=== PATIENT | male | born 1935 | race Two or more races ===

== ENCOUNTER 2020-10-02 23:40 | Inpatient (IN) | payer MEDICARE, MEDICAID ==
[~2020-10-02] VITALS: Ht 157.5 cm; Wt 57.6 kg
--- NOTE | 2020-10-02 23:55 | NUR ---
PT AAOX3, WOLOF SPEAKING. BIBPARAMEDICS FROM HOME C/O FEVER OF 104 TODAY. UPON CHECKING PT HAD TEMP OF 102.9. PER FAMILY, PT HAD A FEVER OF 101 WHICH WAS GIVEN 500MG OF TYLENOL AT 1630. PT PLACED IN BED 7 ON MONITOR AND PULSE OX. IV LAC 18G PLACED, BLOOD WORK COLLECTED, SENT TO LAB.
[2020-10-02] MEDS ORDERED: ACETAMINOPHEN ES 500 MG TABLET ONE (23:56)
[2020-10-03] MEDS ORDERED: ACETAMINOPHEN ES 500 MG TABLET PO ONE
--- NOTE | 2020-10-03 00:01 | NUR ---
Deanna falcon in [facility] - 10/03/20 at 0015 by WENDY BROUGHT BACK FROM CT
[2020-10-03 00:13] LABS: BASOPHILS % (AUTO) 0.1 % (0.0-2.0); EOSINOPHILS % (AUTO) 0.1 % (0.0-6.0); HEMATOCRIT 39 % (39-51); HEMOGLOBIN 13.1 g/dL (13.5-17.5); MEAN CORPUSCULAR HGB CONC 33 g/dl (31.0-36.0); MEAN CORPUSCULAR VOLUME 91 fL (80-96); MONOCYTES # (AUTO) 0.4 /CMM (0.1-1.30); MONOCYTES % (AUTO) 2.7 % (2.0-12.0); NEUTROPHILS # (AUTO) 12.3 /CMM (1.8-8.9); NEUTROPHILS % (AUTO) 90.1 % (43.0-81.0); PLATELET COUNT (AUTO) 150 /CMM (150-450); RED BLOOD CELL COUNT(AUTO) 4.32 MIL/uL (4.5-6.0); WHITE BLOOD COUNT (AUTO) 13.6 K/uL (4.3-11.0)
--- NOTE | 2020-10-03 00:15 | NUR ---
UNABLE TO PROVIDE URINE SAMPLE
--- NOTE | 2020-10-03 00:46 | NUR ---
SPOKE TO THE DAUGHTER FOR AN UPDATE.
[2020-10-03] MEDS ORDERED: IV NS 0.9% 1,000 ML BAG IV ONE ×2 (01:00)
[2020-10-03] MEDS ORDERED: VANCOMYCIN 1 GM in IV D5W 250 ML IV ONE (01:00)
[2020-10-03] MEDS ORDERED: PIPERACILLIN /TAZOBACTAM 3.375 G in IV D5W 50 ML IV ONE (01:00)
--- NOTE | 2020-10-03 01:00 | NUR ---
COVID ANTIGEN NEGATIVE
[2020-10-03] MEDS ORDERED: VANCOMYCIN 1 GM VIAL ONE (01:07)
[2020-10-03] MEDS ORDERED: PIPERACILLIN /TAZOBACTAM 3.375 G VIAL IV ONE (01:07)
--- NOTE | 2020-10-03 01:12 | NUR ---
URINE COLLECTED, SENT TO LAB.
[2020-10-03] MEDS ORDERED: Z GUARD REMEDY 2 OZ OINT TP PRN (01:30)
[2020-10-03] MEDS ORDERED: ZOLPIDEM TARTRATE 5 MG TABLET PO PRN (01:30)
[2020-10-03] MEDS ORDERED: HYDROCODONE/APAP 5/325MG TABLET PO PRN (01:30)
[2020-10-03] MEDS ORDERED: MAG HYDROX/AL HYDROX/SIMETH 30 ML UDC PO PRN (01:30)
[2020-10-03] MEDS ORDERED: AZITHROMYCIN 500 MG in IV D5W 250 ML IV SCH ×2 (01:30→22:00)
[2020-10-03] MEDS ORDERED: IV NS 0.9% 1,000 ML IV ONE (01:30)
[2020-10-03] MEDS ORDERED: MAGNESIUM HYDROXIDE 30 ML UDC PO PRN (01:30)
[2020-10-03] MEDS ORDERED: ONDANSETRON HCL/PF 4 MG/2 ML VIAL IVP PRN (01:30)
[2020-10-03 01:39] LABS: CALCIUM, SERUM 8.6 mg/dL (8.5-10.1); CARBON DIOXIDE 21 mmol/L (21-32); CHLORIDE 104 mmol/L (98-107); CREATININE 1.4 mg/dL (0.6-1.3); GLUCOSE 194 mg/dL (74-106); POTASSIUM 3.9 mmol/L (3.5-5.1); SODIUM SERUM 138 mmol/L (136-145); UREA NITROGEN, BLOOD 28 mg/dL (7-18)
--- NOTE | 2020-10-03 01:49 | NUR ---
REPORT GIVEN TO NURIA VAUGHN FOR JENNIFER
[2020-10-03 01:52] LABS: ALANINE AMINOTRANSFERASE 20 U/L (12-78); ALBUMIN 3.1 g/dL (3.4-5.0); ALKALINE PHOSPHATASE 60 U/L (46-116); ASPARTATE AMINOTRANSFERASE 17 U/L (15-37); B-TYPE NATRIURETIC PEPTIDE 1648 PG/ML (0-125); BILIRUBIN,DIRECT 0.3 mg/dL (0.0-0.2); BILIRUBIN,TOTAL 1.1 mg/dL (0.2-1.0); TOTAL PROTEIN, SERUM 6.9 g/dL (6.4-8.2)
[2020-10-03 01:53] LABS: BILIRUBIN,URINE NEGATIVE (NEGATIVE); COLOR,URINE YELLOW (YELLOW); LEUKOCYTE ESTERASE ,URINE MODERATE (NEGATIVE); NITRITE, URINE NEGATIVE (NEGATIVE); PH,URINE 5.5 (5.0-8.0); PROTEIN,URINE 100 mg/dl (NEGATIVE); UGLUCOSE 250 MG/DL mg/dL (NEGATIVE); UROBILINOGEN,URINE 0.2 EU/dL (0.2)
[2020-10-03] MEDS ORDERED: CEFTRIAXONE 1 G in IV D5W 50 ML IV SCH ×2 (02:00→23:00)
--- NOTE | 2020-10-03 02:00 | NUR ---
RN OPENING NOTE ADMIT 84 YEAR OLD DOMINICAN MALE TO DIOGENES UNIT AT ROOM 117 FROM ER WITH DIAGNOSIS: SEPSIS,ALERT ORIENTED X3 VERBALLY RESPONSIVE DOMINICAN SPEAKER ONLY,ON 4L OXYGEN VIA NASAL CANNULA, O2:96% IV SITE IS ON LEFT AC INTACT PATENT,CONTINENT TO BOWEL/BLADDER,IMPLEMENT SAFETY MEASURE,CALL LIGHT WITHIN REACH,BED IN LOW POSITION AND LOCKED,BED ALARM IS ON CONTINUE TO MONITOR.
[2020-10-03 02:03] LABS: BACTERIA,URINE 3+ /HPF (None Seen); RBC,URINE 81-100 /HPF (0-2); SQUAMOUS EPITHELIAL CELL,UR Few /HPF (None Seen); WBC,URINE TOO NUMEROUS TO COUN /HPF (0-3)
[2020-10-03 02:04] LABS: MUCUS,URINE Few /LPF (None Seen); URINE AMORPHOUS URATE Many /HPF (None Seen)
--- NOTE | 2020-10-03 02:09 | NUR ---
PT TRANSFERED PER ACLS PROTOCOL
[2020-10-03] MEDS ORDERED: CEFTRIAXONE 1 G VIAL ONE (02:20)
[2020-10-03] MEDS ORDERED: AZITHROMYCIN 500 MG VIAL ONE (02:31)
[2020-10-03 02:36] VITALS: BP 113/69
[2020-10-03 03:35] LABS: BASOPHILS # (AUTO) 0.1 /CMM (0.0-0.2); BASOPHILS % (AUTO) 0.3 % (0.0-2.0); HEMATOCRIT 38 % (39-51); HEMOGLOBIN 12.8 g/dL (13.5-17.5); LYMPHOCYTES # (AUTO) 1.3 /CMM (0.8-4.8); LYMPHOCYTES % (AUTO) 6.7 % (20.0-44.0); MEAN CORPUSCULAR HGB CONC 34 g/dl (31.0-36.0); MEAN CORPUSCULAR VOLUME 91 fL (80-96); MONOCYTES # (AUTO) 1.2 /CMM (0.1-1.30); PLATELET COUNT (AUTO) 144 /CMM (150-450); RED BLOOD CELL COUNT(AUTO) 4.18 MIL/uL (4.5-6.0); WHITE BLOOD COUNT (AUTO) 19.5 K/uL (4.3-11.0)
[2020-10-03 03:49] LABS: CALCIUM, SERUM 7.6 mg/dL (8.5-10.1); CREATININE 1.3 mg/dL (0.6-1.3); MAGNESIUM 1.3 mg/dL (1.8-2.4); PHOSPHORUS 1.4 mg/dL (2.5-4.9); POTASSIUM 3.7 mmol/L (3.5-5.1)
[2020-10-03 03:50] LABS: ALBUMIN 2.9 g/dL (3.4-5.0); BILIRUBIN,DIRECT 0.4 mg/dL (0.0-0.2); BILIRUBIN,TOTAL 1.2 mg/dL (0.2-1.0); TOTAL PROTEIN, SERUM 6.4 g/dL (6.4-8.2)
[2020-10-03 04:00] VITALS: BP 117/66
--- NOTE | 2020-10-03 05:00 | NUR ---
RN NOTE REVIEWED THE LAB MG 1.3 PHOSPHORS 1.4 CALLED RECEIVED ORDER 4G MG AND 15 M MOL POTASSIUM PHOSPHOR NOTED AND CARRIED OUT.
[2020-10-03] MEDS: Magnesium 1GM/D5W 100ML PREMIX 100 ML IV SCH ×4 (06:35→11:01)
--- NOTE | 2020-10-03 06:59 | NUR ---
RN CLOSING NOTE PATIENT REMAINS ON ALERT ORIENTED X3 VERBALLY RESPONSIVE NO SOB NOT ACUTE DISTRESS NOTED,ON 4L OXYGEN VIA NASAL CANNULA, O2:96% IV SITE IS ON LEFT AC AMBULATORY WITH ASSIST ALL DUE MEDS GIVEN MD ORDERED KEPT CLEAN AND ALL THE TIME,KEPT CALL LIGHT WITHIN REACH,ENDORSE NEXT COMING SHIFT FOR CONTINUATION OF CARE.
--- NOTE | 2020-10-03 07:29 | NUR ---
HOME OFFICE CLAIMS EXAMINER OPENING NOTES RECEIVED PATIENT IN BED AWAKE, ALERT ORIENTED X3. NEPALI SPEAKING BUT UNDERSTANDS LITTLE OCCITAN. DENIES PAIN OR ANY DISCOMFORTS AT THIS TIME. ON 4L OXYGEN VIA NASAL CANNULA, TOLERATING WELL WITH NO SOB NOTED. PT ON EXTERNAL TELE MONITOR WITH CURRENT READING OS NSR WITH HR ON 90'S, NO C/O CARDIAC DISTRESS VOICED AT THIS TIME. IV ACCESS IS ON LEFT AC G#18 INTACT AND PATENT, IVF RUNNING ORDERED. SAFETY MEASURES IN PLACE: BED IN LOWEST LOCKED POSITION W/ SR UP X2, CALL LIGHT W/IN REACH. WILL CONTINUE TO MONITOR PT ACCORDINGLY.
[2020-10-03] MEDS: POTASSIUM PHOSPHATE MM 7.5 MMOL in IV NS 0.9% 100 ML IV SCH ×2 (07:42→11:03)
[2020-10-03 08:00] VITALS: BP 125/69
[2020-10-03] MEDS ORDERED: LINA145C PO (08:20)
[2020-10-03] MEDS ORDERED: ESCI10TA PO (08:20)
[2020-10-03] MEDS ORDERED: DOCU250C14 PO (08:20)
[2020-10-03] MEDS ORDERED: AMLO-212 PO (08:20)
[2020-10-03] MEDS ORDERED: ASPI-1420 PO (08:20)
[2020-10-03] MEDS ORDERED: ATOR20TA PO (08:20)
[2020-10-03] MEDS ORDERED: LEVO50TA8 PO (08:20)
[2020-10-03] MEDS ORDERED: ALEN70TA80 PO (08:20)
[2020-10-03] MEDS ORDERED: ISOS30TA86 PO (08:20)
[2020-10-03] MEDS ORDERED: ICOS1CAP PO (08:20)
[2020-10-03 12:00] VITALS: BP 145/75
[2020-10-03] MEDS: PIPERACILLIN /TAZOBACTAM 3.375 G in IV D5W 50 ML IV SCH ×3 (12:07→23:06)
[2020-10-03 16:00] VITALS: BP 133/77
[2020-10-03] MEDS ORDERED: IPRATROPIUM NEB FS 0.5 MG/2.5 ML AMPUL.NEB NEB PRN (17:30)
[2020-10-03] MEDS ORDERED: ALBUTEROL HALF STRENGTH 1.25 MG/3 ML VIAL.NEB NEB PRN (17:30)
[2020-10-03] MEDS: ENOXAPARIN SODIUM 40 MG/0.4 ML DISP.SYRIN SQ SCH (17:43)
--- NOTE | 2020-10-03 18:11 | NUR ---
RN NOTES PHARMACIST CALLED TO ASK FAMILY IF THEY CAN BRING PT'S HOME MED LINZESS 145MCG TAB. CALLED PT'S DAUGHTER PERRI AND STATED THAT SHE WILL BRING THE MED TONIGHT. WILL ENDORSE TO INCOMING SHIFT.
--- NOTE | 2020-10-03 18:44 | NUR ---
METAL SORTER CLOSING NOTES PATIENT IN BED AWAKE AT THIS TIME. HOB ELEVATED. A/O X3. SLOVAK SPEAKING. ON SUPPLEMENTAL 02 VIA N/C AT 4LPM, TOLERATING WELL. EXTERNAL OTOLOGIST IN PLACE WITH CURRENT READING OF ST WITH IST DEGREE AV BLOCK WITH HR ON 105, NO C/O CARDIAC DISTRESS VOICED DURING SHIFT. IV ACCESS ON LEFT HAND G#22 INTACT AND PATENT, IVF OF NS @ 75ML/HR INFUSING WELL. NO S/S OF INFILTRATION AT SITE NOTED. ALL NEEDS AND CARE ATTENDED WELL. SAFETY MEASURES KEPT IN PLACE: BED IN LOWEST LOCKED POSITION W/ SR UP X2, CALL LIGHT W/IN REACH. WILL ENDORSE JENNIFER TO TOUR BUS DRIVER NURSE.
--- NOTE | 2020-10-03 19:30 | NUR ---
RECEIVED PATIENT IN BED AWAKE, ALERT ORIENTED X3. GEORGIAN SPEAKING BUT UNDERSTANDS LITTLE BENGALI. DENIES PAIN OR ANY DISCOMFORTS AT THIS TIME. ON 4L OXYGEN VIA NASAL CANNULA, TOLERATING WELL WITH NO SOB NOTED. PT ON EXTERNAL TELE MONITOR WITH CURRENT READING OS NSR WITH HR ON 90'S, NO C/O CARDIAC DISTRESS VOICED AT THIS TIME. IV ACCESS IS ON LEFT HAND # 22 INTACT AND PATENT, WITH ONGOING NS @ 75ML/HR INFUSING WELL. SAFETY MEASURES IN PLACE: BED IN LOWEST LOCKED POSITION W/ SR UP X2, CALL LIGHT W/IN REACH. WILL CONTINUE TO MONITOR PT ACCORDINGLY. SPO2 97%
[2020-10-03 20:00] VITALS: BP 146/65
[2020-10-03] MEDS: DOCUSATE SODIUM 250 MG CAPSULE PO SCH (21:24)
[2020-10-03] MEDS: ATORVASTATIN 10 MG TABLET PO SCH (21:24)
[2020-10-03] MEDS: ACETAMINOPHEN 325 MG TABLET PO PRN (22:14)
[2020-10-04] VITALS: BP 104/57
[2020-10-04 04:00] VITALS: BP 138/78
--- NOTE | 2020-10-04 05:30 | NUR ---
MAITE CALLED ME BECAUSE SHE SAW PT HAVE DIFFICULTY BREATHING AND THE SATURATION IS GOING DOWN TO 80'S GO TO PT ROOM AND SEE PT SITTING ON BED AND HAD A LABORED BREATHING I ALSO HEARD WHEEZING UPON ENTERING THE ROOM, ASK PT IF HE IS OK AND PT SAID NO, PUT PT ON 6L SMPLE MASK AND UPT HIM ON SEMI FOWLERS WILL INFORM MED ABOUT THE SITUATION CONT MONITORING THE PT
--- NOTE | 2020-10-04 05:40 | NUR ---
2466 DR. VILLARREAL PAGED TO NOTIFY HIM OF PATIENT'S SHORTNESS OF BREATH AND DROP IN O2 SATURATION. AWAITING CALL BACK. PATIENT AWAKE IN BED, SITTING ON HIGH MARTIN'S POSITION. TACHYPNEIC IN THE 30S. PLACED ON FACE MASK AT 6 LITERS AND NOTED O2 SATURATION IMPROVED TO 95%. INSTRUCTED PATIENT TO BREATHE NORMALLY THRU TUNISIAN SPEAKING IN HOUSE CRA. RT AT BEDSIDE.
--- NOTE | 2020-10-04 05:55 | NUR ---
[address] VILLARREAL TO CALL BACK. PAGED AGAIN.
--- NOTE | 2020-10-04 05:58 | NUR ---
0558 DR. VILLARREAL CALLED BACK AND MADE AWARE OF PATIENT'S CHANGE OF CONDITION. HE SPOKE WITH RT ALSO. MD GAVE AN ORDER FOR STAT CHEST X-RAY AND TO GIVE ONE DOSE OF ALBUTEROL AND ATROVENT PUFF. ORDER NOTED. PHARMACY AND RADIOLOGY NOTIFIED OF STAT ORDERS.
[2020-10-04] MEDS ORDERED: IPRATROPIUM BROMIDE 14 GM INHALER (or 12.9 GM) IH PRN (06:30)
--- NOTE | 2020-10-04 06:30 | NUR ---
0630 ASSESSED PATIENT AGAIN. AWAKE AND VERBALLY RESPONSIVE. O2 SATURATION 97% ON 7 LITERS FACE MASK. STILL TACHYPNEIC BUT NOT IN RESPIRATORY DISTRESS. KEPT ON HIGH MARTIN'S POSITION FOR MAX OXYGENATION. WILL CONT. TO MONITOR.
[2020-10-04] MEDS: PIPERACILLIN /TAZOBACTAM 3.375 G in IV D5W 50 ML IV SCH (06:32)
[2020-10-04] MEDS: ALBUTEROL SULFATE INH 18 GM HFA.AER.AD IH PRN ×2 (06:53→20:50)
--- NOTE | 2020-10-04 07:35 | NUR ---
RN NOTES RECEIVED PATIENT IN BED AWAKE, ALERT ORIENTED X3. KOREAN SPEAKING BUT UNDERSTANDS LITTLE SLOVENIAN. ON 6L OXYGEN VIA SIMPLE MASK, TOLERATING WELL WITH NO SOB NOTED. PT ON EXTERNAL TELE MONITOR WITH CURRENT READING ST 1ST AV BLOCK. IV ACCESS IS ON LEFT HAND # 22 INTACT AND PATENT SL. SAFETY MEASURES IN PLACE: BED IN LOWEST LOCKED POSITION W/ SR UP X2, CALL LIGHT W/IN REACH. WILL CONTINUE TO MONITOR.
[2020-10-04 08:00] VITALS: BP 119/80
[2020-10-04] MEDS: Linaclotide (Linzess) 145 MCG PO SCH (08:16)
[2020-10-04] MEDS: ASPIRIN EC 81 MG TABLET.DR PO SCH (08:16)
[2020-10-04] MEDS: AMLODIPINE BESYLATE 5 MG TABLET PO SCH (08:17)
[2020-10-04] MEDS: ISOSORBIDE MONONITRATE (30MG) 30 MG TAB.SR.24H PO SCH (08:17)
[2020-10-04] MEDS: ESCITALOPRAM OXALATE (10 MG) 10 MG TABLET PO SCH (08:17)
[2020-10-04] MEDS: LEVOTHYROXINE SODIUM 50 MCG TABLET PO SCH (08:17)
[2020-10-04] MEDS ORDERED: FUROSEMIDE 20 MG/2 ML VIAL IV ONE (09:00)
[2020-10-04] MEDS ORDERED: Medication Not On Formulary EA (Linaclotide (Linzess) 145 MCG) PO SCH (09:00)
[2020-10-04] MEDS ORDERED: VANCOMYCIN 1 GM in IV D5W 250 ML IV SCH (10:00)
[2020-10-04] MEDS: VANCOMYCIN 1 GM in IV D5W 250ml IV SCH (10:44)
[2020-10-04] MEDS: ALBUTEROL HALF STRENGTH 1.25 MG/3 ML VIAL.NEB NEB SCH ×4 (11:30→23:37)
[2020-10-04] MEDS: IPRATROPIUM NEB FS 0.5 MG/2.5 ML AMPUL.NEB NEB SCH ×4 (11:30→23:37)
[2020-10-04] MEDS: LEVOFLOXACIN 750 MG /D5W 150ML 150 ML IV SCH (11:53)
[2020-10-04] MEDS: methylPREDNISolone SOD SUCC 125 MG/2ML VIAL IV SCH ×2 (11:54→20:49)
[2020-10-04 12:00] VITALS: BP 108/69
[2020-10-04] MEDS ORDERED: MEROPENEM 500 MG in IV NS 0.9% 50 ML IV SCH (13:30)
[2020-10-04] MEDS ORDERED: MEROPENEM 1 G in IV NS 0.9% 100 ML IV ONE (14:00)
[2020-10-04 16:00] VITALS: BP 130/71
[2020-10-04 18:40] LABS: BASOPHILS # (AUTO) 0.1 /CMM (0.0-0.2); BASOPHILS % (AUTO) 1.1 % (0.0-2.0); EOSINOPHILS % (AUTO) 0.7 % (0.0-6.0); HEMATOCRIT 35 % (39-51); LYMPHOCYTES # (AUTO) 0.2 /CMM (0.8-4.8); LYMPHOCYTES % (AUTO) 1.9 % (20.0-44.0); MEAN CORPUSCULAR HGB CONC 35 g/dl (31.0-36.0); MEAN CORPUSCULAR VOLUME 91 fL (80-96); MONOCYTES # (AUTO) 0.1 /CMM (0.1-1.30); MONOCYTES % (AUTO) 1.4 % (2.0-12.0); NEUTROPHILS % (AUTO) 94.9 % (43.0-81.0); PLATELET COUNT (AUTO) 159 /CMM (150-450); RED BLOOD CELL COUNT(AUTO) 3.81 MIL/uL (4.5-6.0); WHITE BLOOD COUNT (AUTO) 10.5 K/uL (4.3-11.0)
[2020-10-04 18:59] LABS: CALCIUM, SERUM 7.9 mg/dL (8.5-10.1); CREATININE 1.3 mg/dL (0.6-1.3); PHOSPHORUS 1.9 mg/dL (2.5-4.9); POTASSIUM 3.9 mmol/L (3.5-5.1)
--- NOTE | 2020-10-04 19:06 | NUR ---
RN NOTES RECEIVED PATIENT IN BED AWAKE, ALERT ORIENTED X3. MOZAMBICAN SPEAKING BUT UNDERSTANDS LITTLE IRISH. ON 4L NASAL CANNULA, TOLERATING WELL WITH NO SOB NOTED. PT ON EXTERNAL TELE MONITOR WITH CURRENT READING ST WITH PVC. IV ACCESS IS ON RIGHT FOREARM INTACT AND PATENT SL. ALL TREATMENTS WERE GIVEN ANTICIPATED, PATIENT KEPT CLEAN AND DRY. SAFETY MEASURES ARE APPLIED, WILL ENDORSE TO THE NEXT PRIMARY CARE PEDIATRICIAN NURSE.
--- NOTE | 2020-10-04 19:15 | NUR ---
RN NOTE RECEIVED PT IN BED WITH HEAD OF BED ELEVATED. ALERT AND ORIENTED X 3. FILIPINO SPEAKING BUT UNDERSTANDS YI. ON 4L OF O2 VIA NASAL CANULA. RESPIRATIONS UNLABORED. PT DENIES TROUBLE BREATHING. DENIES PAIN OR DISCOMFORT. IV ON RIGHT FOREARM PATENT AND INTACT. FLUSHING WELL WITHOUT COMPLICATIONS. URINAL AT BEDSIDE REACHABLE. CALL LIGHT WITHIN REACH, SAFETY MEASURES IN PLACE PER PROTOCOL, BED ALARM ON, BED LOCKED AND IN LOW POSITION, SIDE RAILS UP X 2, WILL MONITOR
[2020-10-04 20:00] VITALS: BP 128/66
[2020-10-04 20:15] LABS: LYMPHOCYTES % (MANUAL) 4 % (16-48); MONOCYTES % (MANUAL) 4 % (0-11.0); NEUTROPHILS % (MANUAL) 92 (42-76)
[2020-10-04] MEDS: ACETAMINOPHEN 325 MG TABLET PO PRN (20:49)
[2020-10-04] MEDS: ENOXAPARIN SODIUM 40 MG/0.4 ML DISP.SYRIN SQ SCH (20:51)
[2020-10-04] MEDS: DOCUSATE SODIUM 250 MG CAPSULE PO SCH (21:01)
[2020-10-04] MEDS: ATORVASTATIN 10 MG TABLET PO SCH (21:01)
[2020-10-04] MEDS: MEROPENEM 1 G in IV NS 0.9% 100 ML IV SCH (23:24)
[2020-10-05] VITALS: BP 138/78
--- NOTE | 2020-10-05 00:06 | NUR ---
RN NOTE SPOKE TO JULIEN (DAUGHTER) AND GAVE UPDATE ON PT'S STATUS.
[2020-10-05] MEDS: ALBUTEROL HALF STRENGTH 1.25 MG/3 ML VIAL.NEB NEB SCH ×6 (00:10→20:20)
[2020-10-05] MEDS: IPRATROPIUM NEB FS 0.5 MG/2.5 ML AMPUL.NEB NEB SCH ×6 (00:10→20:20)
[2020-10-05] MEDS: VANCOMYCIN 1 GM in IV D5W 250ml IV SCH (03:18)
[2020-10-05 04:00] VITALS: BP 135/81
[2020-10-05] MEDS: methylPREDNISolone SOD SUCC 125 MG/2ML VIAL IV SCH ×3 (04:14→21:32)
--- NOTE | 2020-10-05 05:36 | NUR ---
RN NOTE PT REFUSED TO HAVE BLOOD DRAWN AT THIS TIME DESPITE EXPLANATION OF RISKS VS ADVANTAGES. PT AGREED TO HAVE BLOOD AT A LATER TIME.
--- NOTE | 2020-10-05 06:55 | NUR ---
RN NOTE NO ACUTE CHANGES OBSERVED OVERNIGHT. PT SLEEPING IN BED WITH HEAD OF BED ELEVATED. PT WITH 4L OF O2 VIA NASAL CANULA. RESPIRATIONS UNLABORED, NO SIGNS OF PAIN OR DISCOMFORT, RIGHT FOREARM 22G IV PATENT. SAFETY MEASURES IN PLACE PER PROTOCOL, WILL ENDORSE TO MORNING RN FOR JENNIFER.
[2020-10-05] MEDS: LEVOTHYROXINE SODIUM 50 MCG TABLET PO SCH (07:37)
--- NOTE | 2020-10-05 07:46 | NUR ---
RN OEPNING NOTE PATIENT IS CURRENTLY IN BED WITH HOB AT SEMI FOWLERS POSITION. CURRENTLY ON 4L NC WITH NO SIGNS OF LABORED BREATHING. PATIENT IS AOX3 AND MACANESE SPEAKING. SKIN IS INTACT. RFA#22 IS PATENT, INTACT, AND HAS NO SIGNS OF INFILTRATION. BED IS LOCKED IN THE LOWEST POSITION, 3 GUARD RAILS RAISED AND ALL HOSPITAL SAFETY PRECAUTIONS ARE BEING FOLLOWED. WILL CONTINUE TO MONITOR THROUGHOUT SHIFT.
[2020-10-05 08:00] VITALS: BP 137/80
[2020-10-05] MEDS: Linaclotide (Linzess) 145 MCG PO SCH (09:00)
[2020-10-05] MEDS: AMLODIPINE BESYLATE 5 MG TABLET PO SCH (09:54)
[2020-10-05] MEDS: ESCITALOPRAM OXALATE (10 MG) 10 MG TABLET PO SCH (09:54)
[2020-10-05] MEDS: ISOSORBIDE MONONITRATE (30MG) 30 MG TAB.SR.24H PO SCH (09:54)
[2020-10-05] MEDS: ASPIRIN EC 81 MG TABLET.DR PO SCH (09:54)
[2020-10-05] MEDS: MEROPENEM 1 G in IV NS 0.9% 100 ML IV SCH (12:53)
[2020-10-05 16:00] VITALS: BP 134/86
[2020-10-05 17:23] LABS: BASOPHILS % (AUTO) 0.1 % (0.0-2.0); HEMATOCRIT 37 % (39-51); HEMOGLOBIN 12.3 g/dL (13.5-17.5); LYMPHOCYTES # (AUTO) 0.7 /CMM (0.8-4.8); LYMPHOCYTES % (AUTO) 5.2 % (20.0-44.0); MEAN CORPUSCULAR HGB CONC 34 g/dl (31.0-36.0); MEAN CORPUSCULAR VOLUME 91 fL (80-96); MONOCYTES # (AUTO) 0.5 /CMM (0.1-1.30); MONOCYTES % (AUTO) 3.6 % (2.0-12.0); NEUTROPHILS # (AUTO) 11.8 /CMM (1.8-8.9); NEUTROPHILS % (AUTO) 91.1 % (43.0-81.0); PLATELET COUNT (AUTO) 188 /CMM (150-450); RED BLOOD CELL COUNT(AUTO) 4.05 MIL/uL (4.5-6.0)
[2020-10-05 17:37] LABS: CALCIUM, SERUM 8.8 mg/dL (8.5-10.1); CREATININE 1.1 mg/dL (0.6-1.3); MAGNESIUM 2.2 mg/dL (1.8-2.4); PHOSPHORUS 1.6 mg/dL (2.5-4.9); POTASSIUM 3.9 mmol/L (3.5-5.1)
[2020-10-05 18:14] LABS: FERRITIN 230 ng/mL (8-388)
[2020-10-05 19:04] LABS: IRON, SERUM 37 ug/dl (50-175); TOTAL IRON BINDING CAPACITY 210 ug/dl (250-450)
--- NOTE | 2020-10-05 19:09 | NUR ---
RN CLOSING NOTE PATIENT IS CURRENTLY IN BED WITH HOB AT SEMI FOWLERS POSITION. CURRENTLY ON 2L NC WITH NO SIGNS OF LABORED BREATHING. PATIENT IS AOX3 AND GUINEAN SPEAKING. SKIN IS INTACT. LFA#20 IS PATENT, INTACT, AND HAS NO SIGNS OF INFILTRATION. BED IS LOCKED IN THE LOWEST POSITION, 3 GUARD RAILS RAISED AND ALL HOSPITAL SAFETY PRECAUTIONS ARE BEING FOLLOWED. ALL DUE MEDS GIVEN AND PATIENT REMAINED STABLE THROUGHOUT SHIFT. WILL ENDORSE TO EDUCATION MANAGER RN.
--- NOTE | 2020-10-05 19:20 | NUR ---
RN NOTE RECEIVED PT IN BED WITH HEAD OF BED ELEVATED. ALERT AND ORIENTED X 3. HUNGARIAN SPEAKING BUT UNDERSTANDS ICELANDIC. ON 2L OF O2 VIA NASAL CANULA. RESPIRATIONS EVEN AND UNLABORED. PT DENIES TROUBLE BREATHING OR SHORTNESS SOF BREATH . DENIES PAIN OR DISCOMFORT. IV ON RIGHT FOREARM PATENT AND INTACT. FLUSHING WELL WITHOUT COMPLICATIONS. URINAL AT BEDSIDE REACHABLE. CALL LIGHT WITHIN REACH, SAFETY MEASURES IN PLACE PER PROTOCOL, BED ALARM ON, BED LOCKED AND IN LOW POSITION, SIDE RAILS UP X 2, WILL MONITOR
[2020-10-05] MEDS: DOCUSATE SODIUM 250 MG CAPSULE PO SCH (21:32)
[2020-10-05] MEDS: ATORVASTATIN 10 MG TABLET PO SCH (21:32)
[2020-10-05] MEDS: ENOXAPARIN SODIUM 40 MG/0.4 ML DISP.SYRIN SQ SCH (21:33)
[2020-10-06 04:00] VITALS: BP 152/96
[2020-10-06] MEDS: ALBUTEROL HALF STRENGTH 1.25 MG/3 ML VIAL.NEB NEB SCH ×4 (04:00→14:43)
[2020-10-06] MEDS: IPRATROPIUM NEB FS 0.5 MG/2.5 ML AMPUL.NEB NEB SCH ×4 (04:00→14:43)
[2020-10-06] MEDS: methylPREDNISolone SOD SUCC 125 MG/2ML VIAL IV SCH ×2 (04:46→13:01)
[2020-10-06 06:38] LABS: BASOPHILS % (AUTO) 0.1 % (0.0-2.0); HEMATOCRIT 35 % (39-51); HEMOGLOBIN 12.2 g/dL (13.5-17.5); LYMPHOCYTES # (AUTO) 0.8 /CMM (0.8-4.8); LYMPHOCYTES % (AUTO) 6.4 % (20.0-44.0); MEAN CORPUSCULAR HGB CONC 34 g/dl (31.0-36.0); MEAN CORPUSCULAR VOLUME 89 fL (80-96); MONOCYTES # (AUTO) 0.4 /CMM (0.1-1.30); MONOCYTES % (AUTO) 3.4 % (2.0-12.0); NEUTROPHILS # (AUTO) 11.7 /CMM (1.8-8.9); NEUTROPHILS % (AUTO) 90.1 % (43.0-81.0); PLATELET COUNT (AUTO) 204 /CMM (150-450); RED BLOOD CELL COUNT(AUTO) 3.99 MIL/uL (4.5-6.0)
--- NOTE | 2020-10-06 06:44 | NUR ---
RN NOTE PT AWAKE AND ALERT SITTING UP IN CHAIR. PT CURRENTLY ON ROOM AIR, RESPIRATIONS UNLABORED, NO SIGNS OF PAIN OR DISCOMFORT, SPOKE TO DAUGHTER ON PHONE WHO STATES THAT PT IS FRUSTRATED AND WISHES TO GO HOME AGAINST MEDICAL ADVICE. EXPLAINED IMPORTANCE OF STAYING INSIDE HOSPITAL AND TO WAIT TO SPEAK TO THE PHYSICIANS. DAUGHTER SPOKE TO PT ON THE PHONE WHICH HELPED TO CALM PT DOWN. WILL CONTINUE TO MONITOR,
[2020-10-06] MEDS: LEVOTHYROXINE SODIUM 50 MCG TABLET PO SCH (07:29)
--- NOTE | 2020-10-06 07:34 | NUR ---
RN OPENING NOTE PATIENT IS CURRENTLY PACING AROUND ROOM. CURRENTLY ON ROOM AIR WITH NO SIGNS OF LABORED BREATHING. PATIENT IS HEBREW SPEAKING. SKIN IS INTACT. LFA#20 IS PATENT AND INTACT. CURRENTLY AWAITING DAUGHTER'S ARRIVAL TO UNIT. ALL SAFETY PRECAUTIONS ARE IN PLACE. WILL CONTINUE TO MONITOR THROUGHOUT SHIFT.
[2020-10-06 07:54] LABS: CALCIUM, SERUM 9.3 mg/dL (8.5-10.1); CREATININE 1.1 mg/dL (0.6-1.3); MAGNESIUM 2.5 mg/dL (1.8-2.4); PHOSPHORUS 2.5 mg/dL (2.5-4.9)
[2020-10-06 08:00] VITALS: BP 145/85
[2020-10-06 08:02] LABS: PROSTATE SPECIFIC ANTIGEN SCR 9.97 ng/mL (0.00-4.00)
[2020-10-06] MEDS: ASPIRIN EC 81 MG TABLET.DR PO SCH (08:42)
[2020-10-06] MEDS: ESCITALOPRAM OXALATE (10 MG) 10 MG TABLET PO SCH (08:46)
[2020-10-06] MEDS: ISOSORBIDE MONONITRATE (30MG) 30 MG TAB.SR.24H PO SCH (08:46)
[2020-10-06] MEDS: AMLODIPINE BESYLATE 5 MG TABLET PO SCH (08:46)
[2020-10-06] MEDS: Linaclotide (Linzess) 145 MCG PO SCH (08:48)
[2020-10-06] MEDS ORDERED: ALENDRONATE 70 MG TABLET PO SCH (09:00)
[2020-10-06] MEDS: LEVOFLOXACIN 750 MG /D5W 150ML 150 ML IV SCH (10:59)
--- NOTE | 2020-10-06 15:25 | NUR ---
RN NOTE AMBULATED PATIENT AROUND UNIT OFF O2. O2 AFTER AMBULATION WAS 88%. PLACE BACK ON 2L NC.
[2020-10-06] MEDS ORDERED: LEVO750T46 PO (15:31)
[2020-10-06 16:00] VITALS: BP 144/83
--- NOTE | 2020-10-06 17:15 | NUR ---
CLERICAL SUPERVISOR NOTE PATIENT DISCHARGED ON 2L NC. EDUCATION PROVIDED TO PATIENT AND FAMILY AT BEDSIDE. PATIENT IS STABLE AT TIME OF DC.
== END 2020-10-06 17:20 | disposition home health service (06) | DRG 871 ==
LOC: ER 23:42 → TELE1 10-03 01:29 → MEDSG1 10-05 08:15
PROVIDERS: ADMIT Nurse Practitioner Acute Care; ATTEND Nurse Practitioner Acute Care
DX: A41.59 Other Gram-negative sepsis (principal); N17.0 Acute kidney failure with tubular necrosis; J18.9 Pneumonia, unspecified organism; I50.33 Acute on chronic diastolic (congestive) heart failure; E44.1 Mild protein-calorie malnutrition; N39.0 Urinary tract infection, site not specified; J98.11 Atelectasis; J45.901 Unspecified asthma with (acute) exacerbation; E03.9 Hypothyroidism, unspecified; Z20.822 Contact with and (suspected) exposure to COVID-19; M54.5 Low back pain; Z98.61 Coronary angioplasty status; I25.10 Atherosclerotic heart disease of native coronary artery without angina pectoris; F32.9 Major depressive disorder, single episode, unspecified; Z87.891 Personal history of nicotine dependence; I70.0 Atherosclerosis of aorta; E78.5 Hyperlipidemia, unspecified; E83.42 Hypomagnesemia; Z79.83 Long term (current) use of bisphosphonates; Z79.82 Long term (current) use of aspirin; Z79.899 Other long term (current) drug therapy; I11.0 Hypertensive heart disease with heart failure; B96.1 Klebsiella pneumoniae [K. pneumoniae] as the cause of diseases classified elsewhere; R09.02 Hypoxemia
CPT/HCPCS: 36415; 71045-TC; 80048-TC; 80061-TC; 80076-TC; 81001; 82728-TC; 83540-TC; 83605-TC; 83735-TC; 83880; 84100-TC; 84153-TC; 84154-TC; 84484-TC; 85025-TC; 85730-TC; 87040-TC; 87081-TC; 87086-TC; 87186-TC; 93307-TC; 94799-TC; C9803; G0378; J0456; J0696; J1650; J1940; J1956; J2185; J2543; J2930; J3370; J3475; J3490; J7030; J7050; J7060; U0003